=== PATIENT | female | born 1980 | race Asian ===

== ENCOUNTER 2017-01-15 09:44 | Emergency (ER) | payer OTHER ==
--- NOTE | 2017-01-15 09:48 | EDPHY ---
H & P Time Seen by Provider: 01/15/17 09:48 Constitutional: Initial Vital Signs Heart Rate 76 01/15/17 09:53 Respiratory Rate 16 01/15/17 09:53 Blood Pressure 129/80 H 01/15/17 09:53 O2 Sat (%) 98 01/15/17 09:53 O2 Delivery Mode Room Air Allergies/Adverse Reactions: No Known Allergies Allergy (Unverified 01/15/17 10:04) Home Medications: Medication Instructions Recorded NK [No Known Home Meds] 01/15/17 Medical Decision Making - Diagnostics Imaging Results: Imaging Impressions Head MRA 01/15/17 10:06 Impression: Negative MRA of the [facility]. Results called and discussed with Pietro Iyer MD at 01/15/2017 13:10. Neck MRA 01/15/17 10:06 Impression: MRA of the cervical carotids and vertebrals demonstrate no evidence of flow-limiting stenosis, occlusion, or dissection. Measurements of carotid stenosis are based on the residual internal carotid diameter with [place] Symptomatic Carotid Endarterectomy Trial (NASCET) based stenosis levels. Results called and discussed with Pietro Iyer MD at 01/15/2017 13:11. Imaging: Discussed imaging studies w/ third officer Radiologist, I viewed and interpreted images myself ED Course/Re-evaluation: CHIEF COMPLAINT: Dizziness HISTORY OF PRESENT ILLNESS: The patient is a 36 y/o female who complains of worsening dizziness for two- three months. She was seen at her primary care provider in July, 5 months ago, but they found no acute findings. She states she is dizzy all the time, except she is currently asymptomatic. She also states they dizziness is intermittent while laying still or closing her eyes. She also states her symptoms do not improve or worsen when she moves her head. She also complains of blurred vision when she is menstruating. Denies recent trauma, nausea, vomiting, fever, chills, recent illness or other pertinent symptoms. The patient is a poor historian and it was difficulty to understand her prior medical history and exam findings. Prior medical records reviewed including [facility] visit on 08/11/16 with Karyn REYES. REVIEW OF SYSTEMS: A 10 point review of systems was performed and is negative with the exception of the elements mentioned in the history of present illness. PHYSICAL EXAM: HR, BP, O2 Sat, RR. Temp noted General Appearance: Alert, well hydrated, appropriate, and non-toxic appearing. Head: Atraumatic without scalp tenderness or obvious injury Eyes: Pupils equal, round, reactive to light and accommodation, EOMI, no trauma , no injection. Ears: Clear bilaterally, no perforation, normal landmarks Nose: Atraumatic, no rhinorrhea, clear. Throat: Mucus membranes moist. Neck: Supple, nontender, no lymphadenopathy. Respiratory: No retractions, no distress, no wheezes, and no accessory muscle use. Lungs are clear to auscultation bilaterally. Cardiovascular: Regular rate and rhythm, no murmurs, rubs, or gallops. Good capillary refill all extremities. Gastrointestinal: Abdomen is soft, nontender, non-distended, no masses, no rebound, no guarding, no peritoneal signs. Musculoskeletal: Normal active ROM of all extremities, atraumatic. Neurological: Alert, appropriate, and interactive. The patient has normal DTRs and non-focal cranial nerves, motor, sensory, and cerebellar exam. Skin: No rashes, good turgor, no nodules on palpation. Past medical history: Denies Past surgical history: Denies Family history: Noncontributory Social history: Family at bedside, tobacco user, from the [facility]. DIAGNOSTICS/PROCEDURES/CRITICAL CARE TIME: Head MRI's: Negative DIFFERENTIAL DIAGNOSIS: The differential diagnosis for the patient's dizziness included but was not limited to peripheral and central causes of brain mass, TIA, CVA, vascular insufficiency, aneurism, vertigo, orthostatic causes including dehydration, cardiogenic and neurogenic causes, and blood loss. MEDICAL DECISION MAKING: The patient is a 36 y/o female who complains of worsening dizziness for the past 2-3 months. She is a poor historian, and states she is currently not dizzy. Her physical exam is negative. She was able to follow most of my commands. She has already had laboratory studies performed, which were negative. Plan on an MRI study to rule out acute findings. She will be sent to [facility]. Reassessed patient and discussed plan for head MRI. Patient and her are comfortable with driving to the [facility] for the MRI. Spoke with Dr. Leyva, radiologist, about the patient's negative head MRI's. The nurse spoke with the patient on the phone regarding her negative MRI findings and a followup visit with Dr. Sebesto, neurologist. - Data Points Laboratory Results: 01/15/17 01/15/17 10:16 10:12 POC Hgb 15.3 gm/dL gm/dL (12.6-16.3) POC Hct 45 % % (38-47) POC Sodium 139 mEq/L mEq/L (134-144) POC Potassium 4.0 mEq/L mEq/L (3.3-5.0) POC Chloride 103 mEq/L mEq/L (97-110) POC BUN 11 mg/dL mg/dL (7-23) POC Creatinine 0.7 mg/dL mg/dL (0.6-1.0) POC Glucose 88 mg/dL mg/dL (70-100) Beta HCG, Qual NEGATIVE Point of Care Test Results: 01/15/17 10:12 POC Sodium 139 POC Potassium 4.0 POC Chloride 103 POC BUN 11 POC Creatinine 0.7 POC Glucose 88 Departure - Departure Disposition: Home, Routine, Self-Care Clinical Impression: Dizziness Condition: Good Instructions: Dizziness (ED) Additional Instructions: 1. Follow up with a neurologist in the next week. You have been referred to Dr. Hitchcock, if you do not have a neurologist. 2. Return to the ED if you experience a headache, nausea, vomiting, numbness, weakness, neck pain, fever or other concerns. Referrals: NONE *PRIMARY CARE P,. [Primary Care Provider] - As per Instructions Daniel Hitchcock DO [Doctor of Osteopathy] - As per Instructions Report Scribed for: Pietro Iyer Report Scribed by: Hedy Matson Date of Report: 01/15/17 Time of Report: 09:58
[2017-01-15 10:03] VITALS: PULSE 76; RESP 16
[2017-01-15 10:35] VITALS: BP 111/70; TEMP 97.2; O2SAT 99
[2017-01-15] MEDS ORDERED: GADOBUTROL 10 ML VIAL IVP ONE (11:40)
== END 2017-01-15 13:23 | disposition home or self-care (01) ==
LOC: CED 09:44
DX: R42 Dizziness and giddiness (principal)
CPT/HCPCS: 82947-QW; 84703-PO; A9585

== ENCOUNTER 2017-06-15 14:57 | Emergency (ER) | payer OTHER ==
[2017-06-15 15:30] VITALS: RESP 16; TEMP 97.9; O2SAT 97
[2017-06-15 15:57] LABS: PLATELET COUNT 207 10^3/uL (150-400)
--- NOTE | 2017-06-15 16:17 | EDPHY ---
H & P Stated Complaint: 3-4 weeks generalized abd pain,decreased appetite,dizzy/ lightheaded Time Seen by Provider: 06/15/17 15:04 HPI/ROS: This patient complains of 3-4 weeks of generalized abdominal pain that is intermittent. She has associated nausea and dry heaves over the past couple weeks. This is also intermittent. She notes no clear exacerbating factors reports currently she does not have abdominal pain. Of note her last menstrual period was 04/30/2017. Usually she has regular menses. She reports occasional lightheadedness in addition and denies any other associated symptoms and no clear exacerbating or alleviating factors. At peak intensity the pain is moderate. ROS: No high fevers or chills. No significant fatigue. HEENT: No complaints line pulmonary: No shortness of breath or cough Cardiovascular no chest pain. No lower extremity swelling. GI: Mild anorexia. She reports normal bowel movements. No distension. : Last menstrual. General 2017. No vaginal discharge. No urinary symptoms except slight left-sided pain when she urinates. Integumentary: No skin rash Endocrine: No complaints Neuro: No complaints new line 10 point ROS is otherwise neg. 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 Surg-none - Family History Significant Family History: No pertinent family hx - Social History Smoking Status: Former smoker Alcohol Use: None Drug Use: None Additional Social History: Patient is originally from the [facility]. - Physical Exam Exam: General Appearance: Alert, no distress. Eyes: Pupils equal and round no pallor or injection. ENT, Mouth: Mucous membranes moist. Respiratory: There are no retractions, lungs are clear to auscultation. Cardiovascular: Regular rate and rhythm. Gastrointestinal: Abdomen is soft and nontender, no masses, bowel sounds normal. Back: No CVA tenderness Neurological: GCS 15 Skin: Warm and dry, no rashes. Musculoskeletal: Neck is supple nontender. Extremities are symmetrical, full range of motion. Psychiatric: Mood and affect normal DIFFERENTIAL DIAGNOSIS: After history and physical exam differential diagnosis was considered for , ectopic , constipation, indigestion, doubt appendicitis Constitutional: Initial Vital Signs Temperature (C) 36.6 C 06/15/17 15:20 Heart Rate 76 06/15/17 15:20 Respiratory Rate 16 06/15/17 15:20 Blood Pressure 114/71 06/15/17 15:20 O2 Sat (%) 97 06/15/17 15:20 O2 Delivery Mode Room Air Allergies/Adverse Reactions: No Known Allergies Allergy (Verified 06/15/17 15:20) Home Medications: Medication Instructions Recorded Doxylamine/Pyridoxine HCl (B6) 2 each PO HS PRN #20 tablet. 06/15/17 [Bhanu Carter 10-10 mg Tablet] Medical Decision Making - Diagnostics Imaging Results: Imaging Impressions Pelvic/Renal Ultrasound 06/15/17 16:13 Impression: There is a single viable intrauterine gestation with an estimated age of 7 weeks 2 days and a heart rate of 141 bpm. Because the patient will be 37 years old at the time of delivery (and therefore of advanced maternal age), it may be worthwhile to consider follow up sonography with the [facility] at the [facility] between 11 and 13 weeks gestation to assess the nuchal translucency and NIPT. Findings and suggestions were discussed with LO HARRIS MD at 17:13, on 06/15/2017. Imaging: Discussed imaging studies w/ at home independent call center agent Radiologist (Discussed with Dr. Honorio Hoffman) ED Course/Re-evaluation: CBC reveals mild leukocytosis commensurate with , comp metabolic panel is normal. Urinalysis is normal. Urine is positive. Quant HCG is consistent with her dates. Patient remained comfortable here without recurrence of abdominal pain while in the emergency department. Pelvic ultrasound documented viable 7 week IUP without abnormalities at this time. Patient's quant HCG is commensurate with her ultrasound as are her last menstrual period dates. Unclear why the patient has been having generalized abdominal pain but does not sound like she was actually having pelvic pain so much is generalized crampy intermittent and fleeting pain. Workup ruled out hepatitis, doubt cholecystitis given lack of elevation of LFTs or other concerning findings. We ruled out ectopic with her pelvic ultrasound ruled out UTI with normal urinalysis. Given the patient's age she will be 37 the time of expected delivery, she warrants follow-up with OBGYN for advanced maternal age at 11 weeks gestation. I counseled her regarding this. She will follow up with her [facility]. I will prescribe dye clean just for her associated nausea and vomiting. Currently she does not have findings that would suggest any significant dehydration. She understands need to return should she develop any significant worsening of symptoms despite the treatment plan. - Data Points Laboratory Results: Laboratory Results 06/15/17 15:40 06/15/17 15:40 06/15/17 06/15/17 06/15/17 16:03 16:03 15:40 WBC RBC Hgb Hct MCV MCH MCHC RDW Plt Count MPV Neut % (Auto) Lymph % (Auto) Lane % (Auto) Eos % (Auto) Baso % (Auto) Nucleat RBC Rel Count Absolute Neuts (auto) Absolute Lymphs (auto) Absolute Monos (auto) Absolute Eos (auto) Absolute Basos (auto) Absolute Nucleated RBC Immature Gran % Immature Gran # Sodium Potassium Chloride Carbon Dioxide Anion Gap BUN Creatinine Estimated GFR Glucose Calcium Total Bilirubin AST ALT Alkaline Phosphatase Total Protein Albumin Beta HCG, Quant 021223.00 mIU/mL H mIU/mL (0.00-4.83) Urine Color YELLOW Urine Appearance CLEAR Urine pH 6.0 (5.0-7.5) Ur Specific [place] <= 1.005 (1.002-1.030) Urine Protein NEGATIVE (NEGATIVE) Urine Ketones NEGATIVE (NEGATIVE) Urine Blood NEGATIVE (NEGATIVE) Urine Nitrate NEGATIVE (NEGATIVE) Urine Bilirubin NEGATIVE (NEGATIVE) Urine Urobilinogen 0.2 EU EU (0.2-1.0) Ur Leukocyte Esterase TRACE H (NEGATIVE) Urine RBC OCCASIONAL /hpf /hpf (0-3) Urine WBC OCCASIONAL /hpf /hpf (0-3) Ur Epithelial Cells 2+ /lpf H /lpf (NONE-1+) Urine Bacteria TRACE /hpf H /hpf (NONE SEEN) Urine Glucose NEGATIVE (NEGATIVE) Urine Test POSITIVE 06/15/17 06/15/17 15:40 15:40 WBC 11.41 10^3/uL H 10^3/uL (3.80-9.50) RBC 4.07 10^6/uL L 10^6/uL (4.18-5.33) Hgb 12.2 g/dL L g/dL (12.6-16.3) Hct 36.2 % L % (38.0-47.0) MCV 88.9 fL fL (81.5-99.8) MCH 30.0 pg pg (27.9-34.1) MCHC 33.7 g/dL g/dL (32.4-36.7) RDW 12.6 % % (11.5-15.2) Plt Count 207 10^3/uL 10^3/uL (150-400) MPV 9.6 fL fL (8.7-11.7) Neut % (Auto) 79.9 % H % (39.3-74.2) Lymph % (Auto) 10.8 % L % (15.0-45.0) Lane % (Auto) 6.1 % % (4.5-13.0) Eos % (Auto) 2.5 % % (0.6-7.6) Baso % (Auto) 0.3 % % (0.3-1.7) Nucleat RBC Rel Count 0.0 % % (0.0-0.2) Absolute Neuts (auto) 9.11 10^3/uL H 10^3/uL (1.70-6.50) Absolute Lymphs (auto) 1.23 10^3/uL 10^3/uL (1.00-3.00) Absolute Monos (auto) 0.70 10^3/uL 10^3/uL (0.30-0.80) Absolute Eos (auto) 0.29 10^3/uL 10^3/uL (0.03-0.40) Absolute Basos (auto) 0.03 10^3/uL 10^3/uL (0.02-0.10) Absolute Nucleated RBC 0.00 10^3/uL 10^3/uL (0-0.01) Immature Gran % 0.4 % % (0.0-1.1) Immature Gran # 0.05 10^3/uL 10^3/uL (0.00-0.10) Sodium 137 mEq/L mEq/L (135-145) Potassium 3.8 mEq/L mEq/L (3.5-5.2) Chloride 97 mEq/L mEq/L (97-110) Carbon Dioxide 25 mEq/l mEq/l (22-31) Anion Gap 15 mEq/L mEq/L (8-16) BUN 10 mg/dL mg/dL (7-23) Creatinine 0.7 mg/dL mg/dL (0.6-1.0) Estimated GFR > 60 Glucose 131 mg/dL H mg/dL (70-100) Calcium 9.1 mg/dL mg/dL (8.5-10.4) Total Bilirubin 0.6 mg/dL mg/dL (0.1-1.4) AST 17 IU/L IU/L (14-46) ALT 28 IU/L IU/L (9-52) Alkaline Phosphatase 49 IU/L IU/L (38-126) Total Protein 7.4 g/dL g/dL (6.3-8.2) Albumin 3.6 g/dL g/dL (3.5-5.0) Beta HCG, Quant Urine Color Urine Appearance Urine pH Ur Specific [place] Urine Protein Urine Ketones Urine Blood Urine Nitrate Urine Bilirubin Urine Urobilinogen Ur Leukocyte Esterase Urine RBC Urine WBC Ur Epithelial Cells Urine Bacteria Urine Glucose Urine Test Departure - Departure Disposition: Home, Routine, Self-Care Clinical Impression: First trimester , Generalized abdominal pain Vomiting Qualifiers: Vomiting type: unspecified Vomiting Intractability: non-intractable Nausea presence: with nausea Qualified Code(s): R11.2 - Nausea with vomiting, unspecified Condition: Good Instructions: Doxylamine/Pyridoxine (By mouth), Nausea and Vomiting in (ED), (ED) Additional Instructions: Diagnoses:. Viable 1st trimester 2. Nausea vomiting 3. Generalized abdominal pain Plan: Drink plenty fluids Diclegis nausea medicine at bedtime -2 tabs if needed for nausea or vomiting Tylenol if needed for abdominal pain Follow up with [facility] to establish obstetric physician for this . Referrals: NONE *PRIMARY CARE P,. [Primary Care Provider] - As per Instructions [facility] [Cl[facility]] - As per Instructions Prescriptions: Doxylamine/Pyridoxine HCl (B6) [Bhanu Carter 10-10 mg Tablet] 2 each PO HS PRN # 20 tablet. PRN Reason: Nausea/Vomiting With Chemo
[2017-06-15 17:53] VITALS: BP 103/72; PULSE 79
== END 2017-06-15 17:51 | disposition home or self-care (01) ==
LOC: CED 14:57
DX: O21.0 Mild hyperemesis gravidarum (principal); O26.891 Other specified pregnancy related conditions, first trimester; R10.84 Generalized abdominal pain; Z3A.01 Less than 8 weeks gestation of pregnancy; Z87.891 Personal history of nicotine dependence
CPT/HCPCS: 80053-PO; 81003-PO; 81015-PO; 81025-PO; 84702-PO; 85025-PO

== ENCOUNTER 2017-06-20 14:31 | Emergency (ER) | payer OTHER ==
[2017-06-20 14:49] VITALS: RESP 16; TEMP 98.4
[2017-06-20] MEDS ORDERED: NS 1,000 ML IV ONE (14:57)
--- NOTE | 2017-06-20 15:06 | EDPHY ---
H & P Stated Complaint: vaginal bleeding aprox 1300 today. 7 weeks Time Seen by Provider: 06/20/17 14:47 HPI/ROS: CHIEF COMPLAINT: Vaginal bleeding HISTORY OF PRESENT ILLNESS: Patient is a 36-year-old female 8 weeks gestational age by ultrasound done 5 days ago. She complains of vaginal bleeding that is somewhat light and began an hour and half ago. It is much less than a period. She has not had any cramping. She was seen here on Sunday for diffuse abdominal pain and had ultrasound that revealed an intra uterine at that time. She was not having any bleeding at that time. The source of her abdominal pain was not found. She states that she is no longer having pain but began having this light spotting about an hour and half ago. No fever. No vomiting. No diarrhea. Her 1st baby was born at 8 months and needed to spend 3 days an incubator according to the patient. That child is now 8 years old. REVIEW OF SYSTEMS: Constitutional: denies: chills, fever, recent illness, recent injury EENTM: denies: blurred vision, double vision, nose congestion Respiratory: denies: cough, shortness of breath Cardiac: denies: chest pain, irregular heart rate, lightheadedness, palpitations Gastrointestinal/Abdominal: See HPI denies: abdominal pain, diarrhea, nausea, vomiting, blood streaked stools Genitourinary: See HPI denies: dysuria, frequency, hematuria, pain Musculoskeletal: denies: joint pain, muscle pain Skin: denies: lesions, rash, jaundice, bruising Neurological: denies: headache, numbness, paresthesia, tingling, dizziness, weakness Hematologic/Lymphatic: denies: blood clots, easy bleeding, easy bruising Immunologic/allergic: denies: HIV/AIDS, transplant EXAM: GENERAL: Well-appearing, well-nourished and in no acute distress. HEAD: Atraumatic, normocephalic. EYES: Pupils equal round and reactive to light, extraocular movements intact, sclera anicteric, conjunctiva are normal. ENT: TMs normal, nares patent, oropharynx clear without exudates. Moist mucous membranes. NECK: Normal range of motion, supple without lymphadenopathy or JVD. LUNGS: Breath sounds clear to auscultation bilaterally and equal. No wheezes rales or rhonchi. HEART: Regular rate and rhythm without murmurs, rubs or gallops. ABDOMEN: Soft, nontender, normoactive bowel sounds. No guarding, no rebound. No masses appreciated. : Scant blood, no masses, cervix closed, no tenderness or discharge BACK: No CVA tenderness, no spinal tenderness, step-offs or deformities EXTREMITIES: Normal range of motion, no pitting or edema. No clubbing or cyanosis. NEUROLOGICAL: Cranial nerves II through XII grossly intact. Normal speech, normal gait. 5/5 strength, normal movement in all extremities, normal sensation PSYCH: Normal mood, normal affect. SKIN: Warm, dry, normal turgor, no visible rashes or lesions. 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 Surg-none - Family History Significant Family History: No pertinent family hx - Social History Smoking Status: Former smoker Alcohol Use: Sober Drug Use: None Constitutional: Initial Vital Signs Temperature (C) 36.9 C 06/20/17 14:38 Heart Rate 88 06/20/17 14:38 Respiratory Rate 16 06/20/17 14:38 Blood Pressure 116/76 06/20/17 14:38 O2 Sat (%) 100 06/20/17 14:38 O2 Delivery Mode Room Air Allergies/Adverse Reactions: No Known Allergies Allergy (Verified 06/20/17 14:38) Home Medications: Medication Instructions Recorded Doxylamine/Pyridoxine HCl (B6) 2 each PO HS PRN #20 tablet. 06/15/17 [Bhanu Carter 10-10 mg Tablet] Medical Decision Making - Diagnostics Imaging Results: Imaging Impressions Obstetrics Ultrasound 06/20/17 14:58 Impression: There is a persistent single viable intrauterine , however , a subchorionic hemorrhage has developed since the previous study of 06/15/2017 with small fluid collections seen both superior and inferior to the gestational sac. Findings were discussed with IVORY LYNCH MD at 16:11, on 06/20/2017. Imaging: Discussed imaging studies w/ faculty i on call medical assistant Radiologist ED Course/Re-evaluation: The patient has a subchorionic hemorrhage. We discussed what this means as far as risks of miscarriage. I recommend follow-up ultrasound in 1-[address] Deborah Villagomez at [facility]. We will contact them to ensure follow-up. She was seen at clinic yesterday but was not having any symptoms then. She does not need to be on bedrest or pelvic rest. 4:30 p.m. I spoke with the provider at [facility]. He will ensure early follow-up for the patient. The patient is O-positive Differential Diagnosis: Partial list of the Differential diagnosis considered include but were not limited to; threatened miscarriage, subchorionic hemorrhage and although unlikely based on the history and physical exam, I also considered placental abruption, infection, miscarriage, demise. I discussed these differential diagnoses and the plan with the patient as well as the usual and expected course. The patient understands that the diagnosis is provisional and that in medicine we are not always correct and that further workup is often warranted. Usual and customary warnings were given. All of the patient's questions were answered. The patient was instructed to return to the emergency department should the symptoms at all worsen or return, otherwise to followup with the physician as we discussed. - Data Points Laboratory Results: Laboratory Results 06/20/17 15:05 06/20/17 15:05 06/20/17 06/20/17 06/20/17 15:52 15:05 15:05 WBC RBC Hgb Hct MCV MCH MCHC RDW Plt Count MPV Neut % (Auto) Lymph % (Auto) [place] % (Auto) Eos % (Auto) Baso % (Auto) Nucleat RBC Rel Count Absolute Neuts (auto) Absolute Lymphs (auto) Absolute Monos (auto) Absolute Eos (auto) Absolute Basos (auto) Absolute Nucleated RBC Immature Gran % Immature Gran # Sodium 136 mEq/L mEq/L (135-145) Potassium 3.9 mEq/L mEq/L (3.5-5.2) Chloride 98 mEq/L mEq/L (97-110) Carbon Dioxide 23 mEq/l mEq/l (22-31) Anion Gap 15 mEq/L mEq/L (8-16) BUN 9 mg/dL mg/dL (7-23) Creatinine 0.7 mg/dL mg/dL (0.6-1.0) Estimated GFR > 60 Glucose 86 mg/dL mg/dL (70-100) Calcium 9.7 mg/dL mg/dL (8.5-10.4) Beta HCG, Quant 475567.00 mIU/mL H mIU/mL (0.00-4.83) Urine Color YELLOW Urine Appearance CLEAR Urine pH 6.0 (5.0-7.5) Ur Specific [place] <= 1.005 (1.002-1.030) Urine Protein NEGATIVE (NEGATIVE) Urine Ketones NEGATIVE (NEGATIVE) Urine Blood 1+ H (NEGATIVE) Urine Nitrate NEGATIVE (NEGATIVE) Urine Bilirubin NEGATIVE (NEGATIVE) Urine Urobilinogen 0.2 EU EU (0.2-1.0) Ur Leukocyte Esterase NEGATIVE (NEGATIVE) Urine RBC 3-5 /hpf H /hpf (0-3) Urine WBC NONE SEEN /hpf /hpf (0-3) Ur Epithelial Cells TRACE /lpf /lpf (NONE-1+) Urine Glucose NEGATIVE (NEGATIVE) Patient ABO/Rh O POSITIVE 06/20/17 15:05 WBC 10.81 10^3/uL H 10^3/uL (3.80-9.50) RBC 4.25 10^6/uL 10^6/uL (4.18-5.33) Hgb 12.7 g/dL g/dL (12.6-16.3) Hct 37.8 % L % (38.0-47.0) MCV 88.9 fL fL (81.5-99.8) MCH 29.9 pg pg (27.9-34.1) MCHC 33.6 g/dL g/dL (32.4-36.7) RDW 12.6 % % (11.5-15.2) Plt Count 271 10^3/uL 10^3/uL (150-400) MPV 9.2 fL fL (8.7-11.7) Neut % (Auto) 69.8 % % (39.3-74.2) Lymph % (Auto) 15.2 % % (15.0-45.0) [place] % (Auto) 8.4 % % (4.5-13.0) Eos % (Auto) 5.6 % % (0.6-7.6) Baso % (Auto) 0.6 % % (0.3-1.7) Nucleat RBC Rel Count 0.0 % % (0.0-0.2) Absolute Neuts (auto) 7.55 10^3/uL H 10^3/uL (1.70-6.50) Absolute Lymphs (auto) 1.64 10^3/uL 10^3/uL (1.00-3.00) Absolute Monos (auto) 0.91 10^3/uL H 10^3/uL (0.30-0.80) Absolute Eos (auto) 0.61 10^3/uL H 10^3/uL (0.03-0.40) Absolute Basos (auto) 0.06 10^3/uL 10^3/uL (0.02-0.10) Absolute Nucleated RBC 0.00 10^3/uL 10^3/uL (0-0.01) Immature Gran % 0.4 % % (0.0-1.1) Immature Gran # 0.04 10^3/uL 10^3/uL (0.00-0.10) Sodium Potassium Chloride Carbon Dioxide Anion Gap BUN Creatinine Estimated GFR Glucose Calcium Beta HCG, Quant Urine Color Urine Appearance Urine pH Ur Specific [place] Urine Protein Urine Ketones Urine Blood Urine Nitrate Urine Bilirubin Urine Urobilinogen Ur Leukocyte Esterase Urine RBC Urine WBC Ur Epithelial Cells Urine Glucose Patient ABO/Rh Medications Given: Discontinued Medications Sodium Chloride (Ns) 1,000 mls @ 0 mls/hr IV ONCE ONE; Wide Open PRN Reason: Protocol Stop: 06/20/17 14:58 Last Admin: 06/20/17 15:11 Dose: 1,000 mls Departure - Departure Disposition: Home, Routine, Self-Care Clinical Impression: Subchorionic hemorrhage in first trimester Qualifiers: Fetus number: single or unspecified fetus Qualified Code(s): O41.8X10 - Other specified disorders of amniotic fluid and membranes, first trimester, not applicable or unspecified Condition: Fair Instructions: Subchorionic Hemorrhage (ED) Referrals: HENRIETTA PINO,Belen [Primary Care Provider] - 5-7 days, call for appt. Stand Alone Forms: Work Excuse
[2017-06-20 15:19] LABS: PLATELET COUNT 271 10^3/uL (150-400)
[2017-06-20 16:53] VITALS: BP 116/77; PULSE 87; O2SAT 99
== END 2017-06-20 16:50 | disposition home or self-care (01) ==
LOC: CED 14:31
DX: O41.8X10 Other specified disorders of amniotic fluid and membranes, first trimester, not applicable or unspecified (principal); E86.9 Volume depletion, unspecified; Z87.891 Personal history of nicotine dependence; Z3A.08 8 weeks gestation of pregnancy
CPT/HCPCS: 80048-PO; 81003-PO; 81015-PO; 84702-PO; 85025-PO

== ENCOUNTER 2017-09-28 16:59 | Emergency (ER) | payer OTHER ==
[2017-09-28 17:13] VITALS: BP 121/83
--- NOTE | 2017-09-28 17:37 | EDPHY ---
H & P Stated Complaint: pain in left flank and back and right side and low center abd worse w movmt Time Seen by Provider: 09/28/17 17:13 HPI/ROS: Chief Complaint: Abdominal pain HPI: 37-year-old who is 22 weeks presenting with left lower abdominal pain which has been present since early this morning. Patient states that the pain is constant. Is worse when she bends or pushes. It is not coming in waves. There are no aggravating or alleviating factors. No urinary urgency or frequency. No nausea or vomiting. Has had some constipation but no diarrhea. No fevers or chills. No vaginal discharge or bleeding. Pain is about a 7/10. She has not consulted with her OBGYN doctor. ROS: 10 point Review of Systems is negative except as noted in the HPI. PMH: Denies Social History: No smoking, no alcohol, no recreational drug use Family History: non-contributory Physical Exam: Gen: Awake, Alert, No Distress HEENT: Nose: no rhinorrhea Eyes: PERRLA, EOMI Mouth: Moist mucosa Neck: Supple, no JVD Chest: nontender, lungs clear to auscultation Heart: S1, S2 normal, no murmur Abd: Soft, palpable uterus to 2 cm above the umbilicus consistent with dates, uterus is soft. She has some left adnexal tenderness, abdomen is otherwise soft , no guarding Back: no CVA tenderness, no midline tenderness Ext: no edema, non-tender Skin: no rash Neuro: CN II-XII intact, Sensation grossly intact, Strength 5/5 in bilateral upper and lower extremities - Personal History LMP (Females 10-55): Current Tetanus Diphtheria and Acellular Pertussis (TDAP): Yes Tetanus Vaccine Date: 12/30/2015 - Medical/Surgical History Hx Asthma: No Hx Chronic Respiratory Disease: No Hx Diabetes: No Hx Cardiac Disease: No Hx Renal Disease: No Hx Cirrhosis: No Hx Alcoholism: No Hx HIV/AIDS: No Hx Splenectomy or Spleen Trauma: No Other PMH: Med hx-none- 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 Surg-none - Social History Smoking Status: Former smoker Constitutional: Initial Vital Signs Temperature (C) 36.3 C 09/28/17 17:05 Heart Rate 80 09/28/17 17:05 Respiratory Rate 16 09/28/17 17:05 Blood Pressure 121/83 H 09/28/17 17:05 O2 Sat (%) 97 09/28/17 17:05 O2 Delivery Mode Room Air Allergies/Adverse Reactions: No Known Allergies Allergy (Verified 09/28/17 17:13) Home Medications: Medication Instructions Recorded Doxylamine/Pyridoxine HCl (B6) 2 each PO HS PRN #20 tablet. 06/15/17 [Bhanu Carter 10-10 mg Tablet] Medical Decision Making ED Course/Re-evaluation: 37-year-old who is 22 weeks with left lower pelvis and abdominal pain since early this morning. She is not describing contractions. Given the location of her pain and the fact that she is 22 weeks I feel that she needs further obstetrics evaluation. I have expressed my thoughts to the patient. She is requesting to go to [facility] for further evaluation. I have discussed with Dr. Ck Joiner, on-call OBGYN. He will accept the patient transfer. Patient's pain has been persistent since early this morning. It is not sound like contractions. Patient is otherwise hemodynamically well and her pain is manageable. She is appropriate to go via private vehicle. She will take an Uber. I have instructed her to go straight to labor and delivery. Departure - Departure Disposition: Home, Routine, Self-Care Clinical Impression: Abdominal pain, Condition: Fair Instructions: (ED), Abdominal Pain (ED) Additional Instructions: Go directly to [facility] Labor and delivery. Referrals: CLINICA,ALVAREZ [Other] - As per Instructions
== END 2017-09-28 17:45 | disposition home or self-care (01) ==
LOC: CED 16:59
DX: O26.892 Other specified pregnancy related conditions, second trimester (principal); Z3A.22 22 weeks gestation of pregnancy; Z87.891 Personal history of nicotine dependence

== ENCOUNTER 2017-09-28 18:17 | Observation (INO) | payer OTHER ==
[2017-09-28] MEDS ORDERED: LR 500 ML IV ONE (19:45)
[2017-09-28 20:18] LABS: PLATELET COUNT 241 10^3/uL (150-400)
== END 2017-09-28 21:08 | disposition home or self-care (01) ==
LOC: FLD 18:17
PROVIDERS: ADMIT Obstetrics & Gynecology; ATTEND Obstetrics & Gynecology
DX: O26.892 Other specified pregnancy related conditions, second trimester (principal); R10.9 Unspecified abdominal pain; Z3A.21 21 weeks gestation of pregnancy
CPT/HCPCS: G0378 ×2